=== PATIENT | male | born 1955 | race Caucasian/White ===

== ENCOUNTER 2016-07-16 13:44 | Emergency (ER) | payer BC ==
[~2016-07-16] VITALS: Ht 182.9 cm; Wt 122.5 kg
[2016-07-16] MEDS ORDERED: TOUJ1.2I SC (14:05)
[2016-07-16] MEDS ORDERED: PRIN20TA3 PO (14:05)
[2016-07-16] MEDS ORDERED: DULO1CAP2 (14:05)
[2016-07-16] MEDS ORDERED: MYRB50TA (14:05)
[2016-07-16] MEDS ORDERED: INVO100T PO (14:05)
[2016-07-16] MEDS ORDERED: METF-415 PO (14:05)
[2016-07-16] MEDS ORDERED: ATOR1TAB21 PO (14:05)
[2016-07-16] MEDS ORDERED: GLIM2TA PO (14:05)
[2016-07-16] MEDS ORDERED: AMLO25TA PO (14:05)
[2016-07-16] MEDS ORDERED: INSUHUMDS SC (14:05)
[2016-07-16] MEDS ORDERED: ASPIRIN 81 MG CHEW TABLET PO ONE (14:45)
[2016-07-16 14:59] LABS: BASO # 0.1 K/mm3 (0.0-0.2); BASO % 0.7 % (0.0-1.0); EOS # 0.1 K/mm3 (0.0-0.50); EOS % 1.6 % (0.0-3.0); LARGE UNSTAINED CELL # 0.2 K/mm3 (0.0-0.4); LARGE UNSTAINED CELL % 2.7 % (0.0-4.0); LYMPH # 2.8 K/mm3 (1.5-4.5); LYMPH % 32.4 % (24.0-44.0); MEAN CORPUSCULAR HEMOGLOBIN 29.5 pg (27.0-33.0); MEAN CORPUSCULAR HGB CONC 33.7 g/dl (32.0-36.5); MEAN CORPUSCULAR VOLUME 87.5 fl (80.0-96.0); MONO # 0.6 K/mm3 (0.0-0.8); MONO % 7.5 % (0.0-5.0); NEUTROPHILS # 4.8 K/mm3 (1.8-7.7); NEUTROPHILS % 55.2 % (36.0-66.0); PLATELET COUNT, AUTOMATED 213 k/mm3 (150-450); WHITE BLOOD COUNT 8.6 K/mm3 (4.0-10.0)
--- NOTE | 2016-07-16 15:06 | REP ---
Clinical: Chest pain . Comparison: 11/04/2010 . Findings: The mediastinum and cardiac silhouette are stable and within normal limits for portable technique. The lung minor are clear without acute consolidation, effusion, or pneumothorax. Skeletal structures are intact. Impression: Normal portable chest x-ray Signed by Ravin Hayes MD 07/16/2016 02:57 P
[2016-07-16 15:09] LABS: ANION GAP 9 MEQ/L (8-16); BLOOD UREA NITROGEN 21 MG/DL (7-18); CALCIUM LEVEL 8.5 MG/DL (8.8-10.2); CARBON DIOXIDE LEVEL 28 MEQ/L (21-32); CHLORIDE LEVEL 104 MEQ/L (98-107); CREATININE FOR GFR 1.05 MG/DL (0.70-1.30); GLOMERULAR FILTRATION RATE > 60.0 (>49); GLUCOSE, FASTING 215 MG/DL (80-110); POTASSIUM SERUM 4.2 MEQ/L (3.5-5.1); SODIUM LEVEL 141 MEQ/L (136-145)
--- NOTE | 2016-07-16 15:16 | REP ---
Clinical: Facial numbness . Comparison: None . Findings: The ventricles, sulci, and cisterns are normal in position and appearance. Alcantar-white differentiation is maintained. No acute intracranial hemorrhage, mass/mass effect, pathology or trauma/injury. No evidence for acute infarction. No extra-axial fluid collection. Calvarium is intact. Paranasal sinuses and mastoid air cells are clear. Impression: Normal noncontrast head CT. No evidence for acute intracranial pathology or trauma/injury. Signed by Ravin Hayes MD 07/16/2016 03:07 P
[2016-07-16] MEDS ORDERED: ISOVUE-370 76% 100ML VIAL (Q9967) As Ordered ONE (16:03)
--- NOTE | 2016-07-16 16:59 | REP ---
Clinical: Chest pain and shortness of breath . Technique: Axial contrast enhanced images from the thoracic inlet to the upper abdomen using 100 ml Isovue 370 intravenous contrast material with multiplanar re-formations. Findings: Satisfactory enhancement of the pulmonary vasculature is achieved, but evaluation is limited by respiratory motion artifact. No obvious filling defects are identified to suggest pulmonary embolus. Further evaluation of the mediastinum demonstrates atherosclerotic changes to the thoracic aorta and coronary arteries without cardiomegaly or pericardial effusion. The bilateral lung minor demonstrate mild basilar atelectasis without consolidation, effusion or pneumothorax. Tracheobronchial tree is patent. No nodule or mass lesion is identified. No adenopathy noted. Surrounding musculoskeletal structures intact Impression: No evidence for pulmonary embolus. Trace basilar atelectasis. Signed by Ravin Hayes MD 07/16/2016 04:51 P
[2016-07-16 18:39] VITALS: BP 162/78
--- NOTE | 2016-07-17 09:29 | ECGEPIP ---
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
--- NOTE | 2016-07-17 09:35 | ECGEPIP ---
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
== END 2016-07-16 18:44 | disposition home or self-care (01) ==
LOC: M ED 15:36
DX: M79.602 Pain in left arm (principal); R20.0 Anesthesia of skin; E11.9 Type 2 diabetes mellitus without complications; I10 Essential (primary) hypertension; F33.9 Major depressive disorder, recurrent, unspecified; N32.81 Overactive bladder; Z79.899 Other long term (current) drug therapy
CPT/HCPCS: 70450; 71010; 71275; 80048; 82550; 82553; 83880; 85025; 93005; 93041; 94760; 99285; Q9967

== ENCOUNTER → 2016-08-18 | Outpatient (REF) | payer BC ==
[~2016-08-18] MED LIST: AMLO25TA PO; ATOR1TAB21 PO; DULO1CAP2; GLIM2TA PO; INSUHUMDS SC; INVO100T PO; METF-415 PO; MYRB50TA; PRIN20TA3 PO; TOUJ1.2I SC
== END ==
LOC: M LAB REF 10:45
PROVIDERS: ATTEND Nurse Practitioner Adult Health
DX: R07.9 Chest pain, unspecified (principal)

== ENCOUNTER → 2017-12-07 | Outpatient (REF) | payer BC ==
[2017-12-07 17:00] LABS: BASO # 0.1 10^3/uL (0.0-0.2); BASO % 1.7 % (0.0-1.0); EOS # 0.2 10^3/uL (0.0-0.50); EOS % 3.2 % (0.0-3.0); HEMATOCRIT 43.3 % (42.0-52.0); HEMOGLOBIN 14.2 g/dl (13.5-17.5); IMMATURE GRANULOCYTE % 0.6 % (0-3.0); LYMPH # 1.8 10^3/uL (1.5-4.5); LYMPH % 27.5 % (24.0-44.0); MEAN CORPUSCULAR HEMOGLOBIN 29.2 pg (27.0-33.0); MEAN CORPUSCULAR HGB CONC 32.8 g/dl (32.0-36.5); MEAN CORPUSCULAR VOLUME 89.1 fl (80.0-96.0); MONO # 0.7 10^3/uL (0.0-0.8); MONO % 10.7 % (0.0-5.0); NEUTROPHILS # 3.7 10^3/uL (1.8-7.7); NEUTROPHILS % 56.3 % (36.0-66.0); PLATELET COUNT, AUTOMATED 226 10^3/uL (150-450); RED BLOOD COUNT 4.86 10^6/uL (4.30-6.10); RED CELL DISTRIBUTION WIDTH 12.9 % (11.5-14.5); WHITE BLOOD COUNT 6.5 10^3/uL (4.0-10.0)
[2017-12-07 17:34] LABS: ALBUMIN 3.2 GM/DL (3.2-5.2); ALBUMIN/GLOBULIN RATIO 0.97 (1.00-1.93); ALKALINE PHOSPHATASE 100 U/L (45-117); ALT/SGPT 28 U/L (12-78); ANION GAP 7 MEQ/L (8-16); AST/SGOT 10 U/L (7-37); BILIRUBIN,TOTAL 0.3 MG/DL (0.2-1.0); BLOOD UREA NITROGEN 16 MG/DL (7-18); CALCIUM LEVEL 8.6 MG/DL (8.8-10.2); CARBON DIOXIDE LEVEL 28 MEQ/L (21-32); CHLORIDE LEVEL 108 MEQ/L (98-107); CREATININE FOR GFR 0.84 MG/DL (0.70-1.30); GLOMERULAR FILTRATION RATE > 60.0 (>49); GLUCOSE, FASTING 276 MG/DL (70-100); POTASSIUM SERUM 4.4 MEQ/L (3.5-5.1); PSA SCREENING 0.19 NG/ML (< 4.0); SODIUM LEVEL 143 MEQ/L (136-145); TOTAL PROTEIN 6.5 GM/DL (6.4-8.2)
[2017-12-07 21:21] LABS: CHLAMYDIA DNA AMPLIFICATION NEGATIVE (NEGATIVE); GC DNA AMPLIFICATION NEGATIVE (NEGATIVE)
== END ==
LOC: M SFHCLERA 10:56
DX: R30.0 Dysuria (principal)
CPT/HCPCS: 80053

== ENCOUNTER → 2019-01-16 | Outpatient (CLI) | payer BC ==
[~2019-01-16] MED LIST changes: -DULO1CAP2; +DULO1CAP5; -GLIM2TA PO; +GLIM2TAB29 PO
--- NOTE | 2019-01-16 15:47 | REP ---
Right knee series: Five views. History: Acute pain. Findings: Five views of the right knee show mild superior and lateral osteoarthritic spurring of the patella. There is fullness in the suprapatellar bursa consistent with a joint effusion. Bones joints and soft tissues are otherwise unremarkable. Impression: Mild patellar spurring. Findings consistent with joint effusion. No fracture seen. Electronically Signed by Marques Suarez MD 01/16/2019 03:39 P
== END ==
LOC: M LRY 14:46
PROVIDERS: ATTEND Nurse Practitioner Family
DX: M25.761 Osteophyte, right knee (principal)

== ENCOUNTER 2020-09-16 22:21 | Emergency (ER) | payer BC, MEDICARE ==
[~2020-09-16] VITALS: Ht 185.4 cm; Wt 121.7 kg
[2020-09-16] MEDS ORDERED: BUPR1TAB56 PO (22:35)
[2020-09-16] MEDS ORDERED: GABA-282 PO (22:35)
[2020-09-16] MEDS ORDERED: FLUO40CA PO (22:35)
[2020-09-16] MEDS ORDERED: STEG15TA PO (22:35)
--- NOTE | 2020-09-16 23:22 | REPVR ---
PROCEDURE INFORMATION: Exam: XR Left Ribs with PA Chest Exam date and time: 09/16/2020 11:06 PM Age: 64 years old Clinical indication: Other: Injury pain TECHNIQUE: Imaging protocol: XR Left ribs with PA chest. Views: 3 views COMPARISON: CR PORTABLE CHEST X-RAY 07/16/2016 2:54 PM FINDINGS: Lungs: Minimal bibasilar linear scar which is unchanged from the prior study. There are no interval infiltrates. There is decreased inflation of the lungs. Pleural spaces: Unremarkable. No pleural effusion. No pneumothorax. Heart/Mediastinum: Unremarkable. No cardiomegaly. Bones/joints: Old fracture involving the left 11th rib posterolaterally. No acute fractures are seen. Status post sternotomy. IMPRESSION: 1. Old fracture of the left 11th rib posterolaterally. 2. Stable poor inspiratory chest since 07/16/2016 with prior sternotomy and minimal bibasilar linear scar. 3. Otherwise negative left ribs. Electronically signed by: Jimbo Leija On 09/16/2020 23:22:23 PM
[2020-09-17] MEDS ORDERED: MORPHINE 4 MG/ML 1ML VIAL/SYRINGE (J2270) IV ONE
--- NOTE | 2020-09-17 00:40 | REPVR ---
PROCEDURE INFORMATION: Exam: XR Left Elbow Exam date and time: 09/16/2020 12:30 AM Age: 64 years old Clinical indication: Other: Trauma TECHNIQUE: Imaging protocol: XR Left elbow. Views: 3 or more views. COMPARISON: No relevant prior studies available. FINDINGS: Bones/joints: No fracture. No joint effusion. Soft tissues: Normal. IMPRESSION: Negative left elbow. Electronically signed by: Jimbo Leija On 09/17/2020 00:39:38 AM
--- NOTE | 2020-09-17 01:07 | REPVR ---
PROCEDURE INFORMATION: Exam: XR Right Shoulder Exam date and time: 09/16/2020 12:30 AM Age: 64 years old Clinical indication: Other: Trauma TECHNIQUE: Imaging protocol: XR Right shoulder. Views: 2 or more views. COMPARISON: No relevant prior studies available. FINDINGS: Bones/joints: Status post sternotomy. Old fractures of several right ribs laterally. No shoulder fracture or dislocation. Lungs: A minimal right base atelectasis or scar. Soft tissues: Normal. Other findings: It is noted that this image is mismarked as to laterality. IMPRESSION: Negative right shoulder. No fracture or dislocation. Electronically signed by: Jimbo Leija On 09/17/2020 01:07:44 AM
[2020-09-17 01:21] LABS: BASO # 0.1 10^3/uL (0.0-0.2); BASO % 0.8 % (0.0-1.0); EOS # 0.1 10^3/uL (0.0-0.5); EOS % 1.2 % (0.0-3.0); HEMATOCRIT 46.5 % (42.0-52.0); HEMOGLOBIN 15.1 g/dl (13.5-17.5); LYMPH # 2.6 10^3/uL (1.5-5.0); LYMPH % 24.5 % (24.0-44.0); MEAN CORPUSCULAR HEMOGLOBIN 29.3 pg (27.0-33.0); MEAN CORPUSCULAR HGB CONC 32.5 g/dl (32.0-36.5); MEAN CORPUSCULAR VOLUME 90.1 fl (80.0-96.0); MONO # 1.1 10^3/uL (0.0-0.8); MONO % 10.1 % (2.0-8.0); NEUTROPHILS # 6.6 10^3/uL (1.5-8.5); PLATELET COUNT, AUTOMATED 242 10^3/uL (150-450); RED BLOOD COUNT 5.16 10^6/uL (4.30-6.10); WHITE BLOOD COUNT 10.4 10^3/uL (4.0-10.0)
[2020-09-17 01:55] LABS: BLOOD UREA NITROGEN 32 MG/DL (7-18); CALCIUM LEVEL 8.6 MG/DL (8.8-10.2); CARBON DIOXIDE LEVEL 23 MEQ/L (21-32); CHLORIDE LEVEL 108 MEQ/L (98-107); CPK CREATINE PHOSPHOKINASE 149 U/L (39-308); CREATININE FOR GFR 1.17 MG/DL (0.70-1.30); GLOMERULAR FILTRATION RATE > 60.0 (>49); GLUCOSE, FASTING 313 MG/DL (70-100); MB/CK RELATIVE INDEX 2.68 (< OR =4); POTASSIUM SERUM 4.4 MEQ/L (3.5-5.1); SODIUM LEVEL 141 MEQ/L (136-145); TROPONIN I < 0.02 NG/ML (< 0.10)
--- NOTE | 2020-09-17 01:58 | REPVR ---
PROCEDURE INFORMATION: Exam: XR Left Shoulder Exam date and time: 09/17/2020 1:31 AM Age: 64 years old Clinical indication: Other: Trauma fell TECHNIQUE: Imaging protocol: XR Left shoulder. Views: 2 or more views. COMPARISON: CR Elbow, complete LEFT 09/16/2020 11:53 PM FINDINGS: Bones/joints: Status post sternotomy. Cystic area in the proximal left humerus. No fracture or dislocation. Soft tissues: Normal. IMPRESSION: Negative left shoulder. No acute fracture or dislocation. Electronically signed by: Jimbo Leija On 09/17/2020 01:58:01 AM
--- NOTE | 2020-09-17 02:50 | REPVR ---
PROCEDURE INFORMATION: Exam: CT Chest With Contrast; Diagnostic Exam date and time: 09/17/2020 12:00 AM Age: 64 years old Clinical indication: Injury or trauma; Fall; Blunt trauma (contusions or hematomas); Additional info: Trauma left ribs TECHNIQUE: Imaging protocol: Diagnostic computed tomography of the chest with contrast. Radiation optimization: All CT scans at this facility use at least one of these dose optimization techniques: automated exposure control; mA and/or kV adjustment per patient size (includes targeted exams where dose is matched to clinical indication); or iterative reconstruction. Contrast material: ISO; Contrast volume: 100 ml; Contrast route: INTRAVENOUS (IV); COMPARISON: CT ANGIO CHEST 07/16/2016 4:02 PM FINDINGS: Lungs: Minimal bibasilar fibro-atelectatic change. Pleural spaces: Unremarkable. No pneumothorax. No pleural effusion. Heart: Unremarkable. No cardiomegaly. No pericardial effusion. Pulmonary arteries: The main pulmonary artery measures 34 mm. No pulmonary embolism is identified. Aorta: The ascending thoracic aorta measures 34 mm. Lymph nodes: Unremarkable. No enlarged lymph nodes. Gallbladder and bile ducts: Question of small gallstone in the cystic duct. Spleen: Minimal splenic calcification. Bones/joints: Status post sternotomy. Old fractures of the right 3rd-5th ribs laterally with a bone island noted in the right 6th rib laterally. Nondisplaced fractures of the left 6th and 7th ribs posterolaterally. Slight anterior wedge configuration of T11 which appears to be chronic. Soft tissues: Unremarkable. IMPRESSION: 1. Nondisplaced fractures of the left 6th and 7th ribs posterolaterally. 2. Old fractures of the right 3rd-5th ribs laterally. 3. Status post sternotomy. 4. Question of small gallstone in the cystic duct. 5. Otherwise negative CT chest. Electronically signed by: Jimbo Leija On 09/17/2020 02:50:02 AM
--- NOTE | 2020-09-17 02:57 | REPVR ---
PROCEDURE INFORMATION: Exam: CT Abdomen And Pelvis With Contrast Exam date and time: 09/17/2020 12:00 AM Age: 64 years old Clinical indication: Abdominal pain; Generalized; Additional info: Trauma left ribs TECHNIQUE: Imaging protocol: Computed tomography of the abdomen and pelvis with contrast. Radiation optimization: All CT scans at this facility use at least one of these dose optimization techniques: automated exposure control; mA and/or kV adjustment per patient size (includes targeted exams where dose is matched to clinical indication); or iterative reconstruction. Contrast material: ISO; Contrast volume: 100 ml; Contrast route: INTRAVENOUS (IV); COMPARISON: No relevant prior studies available. FINDINGS: Lungs: Minimal bibasilar fibro-atelectatic change. Liver: The liver and spleen are intact. No perihepatic or perisplenic fluid collections are identified. Gallbladder and bile ducts: Question of small stone in the cystic duct. Pancreas: Normal. No ductal dilation. Spleen: Coarse calcification in the posterior spleen. Adrenal glands: Normal. No mass. Kidneys and ureters: There are some left renal cysts measuring up to 3.3 cm with a Hounsfield measurement of 6 which appear to reflect simple cysts. No follow-up imaging is recommended. Stomach and bowel: Left lower quadrant colostomy at the level of the sigmoid with associated ostomy hernia with extension of some small bowel into the hernia sac. Status post rectal resection with calcific density in the rectal bed. Appendix: A normal appendix is seen. Intraperitoneal space: Unremarkable. No free air. No significant fluid collection. Vasculature: There is mild calcification of the abdominal aorta with extension into the iliac arteries. Lymph nodes: Unremarkable. No enlarged lymph nodes. Urinary bladder: Unremarkable as visualized. Reproductive: Unremarkable as visualized. Bones/joints: Nondisplaced fractures of the left 6th and 7th ribs posterolaterally. Soft tissues: Unremarkable. IMPRESSION: 1. Nondisplaced fractures of the left 6th and 7th ribs posterolaterally. 2. Status post distal colonic resection with left lower quadrant colostomy at the level of the sigmoid. There is associated ostomy hernia with some extension of small bowel into the hernia sac with no obstruction or strangulation. 3. Question of small stone in the cystic duct. 4. Otherwise negative CT abdomen/pelvis. The organs are intact and there is no free fluid. COMMENTS: Consistent with the [employer]'s Incidental Findings Committee white paper (J Am Regis [employer]iol 2018): Any incidental renal lesion less than 1 cm or classified as too small to characterize, or any incidental cystic renal lesion characterized as simple-appearing, is likely benign. No follow-up imaging is recommended for these lesions per consensus recommendations based on imaging criteria. Electronically signed by: Jimbo Leija On 09/17/2020 02:56:52 AM
[2020-09-17] MEDS ORDERED: OXYCODONE/APAP 5MG/325MG(BULK FOR ED) 1 TABLET PO ONE (03:15)
[2020-09-17] MEDS ORDERED: PERC5TAB12 PO (03:19)
[2020-09-17 03:30] VITALS: BP 154/72
--- NOTE | 2020-09-18 08:45 | ECGEPIP ---
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
--- NOTE | 2020-09-21 06:43 | ED PDOC ---
Post-Departure Follow-Up ct chest and ct abd/p faxed to dr benedict for fu Roge Joaquin MD Sep 21, 2020 06:43
== END 2020-09-17 03:52 | disposition home or self-care (01) ==
LOC: M ED 22:21
DX: S22.42XA Multiple fractures of ribs, left side, initial encounter for closed fracture (principal); W19.XXXA Unspecified fall, initial encounter; Y92.89 Other specified places as the place of occurrence of the external cause; E11.9 Type 2 diabetes mellitus without complications; I11.0 Hypertensive heart disease with heart failure; E78.5 Hyperlipidemia, unspecified; F33.9 Major depressive disorder, recurrent, unspecified; Z79.899 Other long term (current) drug therapy; Z79.4 Long term (current) use of insulin
CPT/HCPCS: 71101; 71260; 73030; 73080; 74177; 80048; 82550; 82553; 84484; 85025; 93005; 93041; 94760; 96374; 99285; J2270

== ENCOUNTER → 2022-01-11 | Outpatient (CLI) | payer MEDICARE ==
[~2022-01-11] MED LIST changes: +BUPR1TAB56 PO; +FLUO40CA PO; +GABA-282 PO; +PERC5TAB12 PO; +STEG15TA PO
[2022-01-11 13:04] LABS: ALBUMIN 3.8 GM/DL (3.2-5.2); BLOOD UREA NITROGEN 14 MG/DL (7-18); CALCIUM LEVEL 9.2 MG/DL (8.8-10.2); CARBON DIOXIDE LEVEL 30 MEQ/L (21-32); CHLORIDE LEVEL 102 MEQ/L (98-107); CREATININE FOR GFR 0.93 MG/DL (0.70-1.30); GLOMERULAR FILTRATION RATE > 60.0 (>49); GLUCOSE, FASTING 140 MG/DL (70-100); MAGNESIUM LEVEL 2.1 MG/DL (1.8-2.4); POTASSIUM SERUM 4.1 MEQ/L (3.5-5.1); SODIUM LEVEL 136 MEQ/L (136-145)
== END ==
LOC: M WUC 10:43
DX: G43.009 Migraine without aura, not intractable, without status migrainosus (principal)

== ENCOUNTER → 2024-03-31 | Outpatient (CLI) | payer MEDICARE ==
[~2024-03-31] MED LIST changes: +GABA-1172 PO; -GABA-282 PO
[2024-03-31 13:05] LABS: HEMOGLOBIN A1c 8.8 % (4.0-6.0)
[2024-03-31 13:17] LABS: CREATININE, URINE 74.8 MG/DL
[2024-03-31 13:22] LABS: BLOOD UREA NITROGEN 24 MG/DL (9-23); CALCIUM LEVEL 9.2 MG/DL (8.3-10.6); CARBON DIOXIDE LEVEL 30 MMOL/L (20-31); CHLORIDE LEVEL 106 MMOL/L (98-107); CREATININE FOR GFR 0.94 MG/DL (0.70-1.30); GLOMERULAR FILTRATION RATE > 60.0 (>49); GLUCOSE, FASTING 104 MG/DL (74-106); POTASSIUM SERUM 4.5 MMOL/L (3.5-5.1); PROSTATIC SPECIFIC AG MONITOR 0.16 NG/ML (< 4.00); SODIUM LEVEL 144 MMOL/L (136-145)
== END ==
LOC: M WUC 09:20
PROVIDERS: ATTEND Student in an Organized Health Care Education/Training Program
DX: E11.9 Type 2 diabetes mellitus without complications (principal); Z79.4 Long term (current) use of insulin; Z12.5 Encounter for screening for malignant neoplasm of prostate; Z79.899 Other long term (current) drug therapy